=== PATIENT | male | born 1955 | race Two or more races ===

== ENCOUNTER 2018-01-10 22:03 | Emergency (ER) | payer BC ==
[~2018-01-10] VITALS: Ht 172.7 cm; Wt 77.1 kg
[2018-01-10] MEDS ORDERED: AMOXICILLIN-CLAVUL 875-125MG TABLET PO ONE (23:00)
[2018-01-10] MEDS ORDERED: NEOMY/BACITRA/POLYMYXIN B OINT UD PACKET TP ONE ×2 (23:00→23:17)
[2018-01-10] MEDS ORDERED: TDAP DIPH,PERTUSS,TET VAC/PF 0.5 ML DISP.SYRIN IM ONE ×2 (23:00→23:17)
[2018-01-10] MEDS ORDERED: AMOXICILLIN-CLAVUL 875-125MG TABLET ONE (23:17)
--- NOTE | 2018-01-10 23:43 | NUR ---
Patient discharged to home in stable conditon. Written and verbal after care instructions given. Patient verbalizes understanding of instructions.
[2018-01-10 23:44] VITALS: BP 114/66
== END 2018-01-10 23:51 | disposition home or self-care (01) ==
LOC: ER 22:05
DX: S51.852A Open bite of left forearm, initial encounter (principal); S51.851A Open bite of right forearm, initial encounter; S50.11XA Contusion of right forearm, initial encounter; E78.5 Hyperlipidemia, unspecified; Z90.49 Acquired absence of other specified parts of digestive tract; W54.0XXA Bitten by dog, initial encounter; Y93.89 Activity, other specified; Y92.89 Other specified places as the place of occurrence of the external cause; Y99.8 Other external cause status
CPT/HCPCS: 90471; 90715; 99283; A4217; A4663